=== PATIENT | female | born 1945 | race Caucasian/White ===

== ENCOUNTER 2016-08-08 19:05 | Emergency (ER) | payer MEDICARE ==
[~2016-08-08] VITALS: Ht 170.2 cm; Wt 83.0 kg
[2016-08-08 19:20] VITALS: BP 147/92; PULSE 81; RESP 14; TEMP 98.6; O2SAT 96
[2016-08-08] MEDS ORDERED: LEVO50TA4 PO (19:39)
[2016-08-08] MEDS ORDERED: PRAV40TA2 PO (19:39)
[2016-08-08] MEDS ORDERED: PRAV20TA2 PO (19:39)
--- NOTE | 2016-08-08 21:07 | PD ---
HPI Chief Complaint: Injury Time Seen by Provider: 20:00 Travel History International Travel<30 days: No Contact w/Intl Traveler<30days: No Traveled to known affect area: No History of Present Illness HPI 71-year-old female presents to the emergency room for evaluation of right ankle pain and swelling. Patient tripped on a step and inverted her right ankle approximately 8 hours prior to arrival. She states she was able to lower herself to the ground with the door frame. She denies any other injuries. She denies hitting her head, hip pain, upper extremity pain, neck pain, or back pain. States she had mild pain in her ankle that has been worsening over the day. She has not taken anything for her symptoms but applied topical pain cream. She has been able to ambulate but reports pain with ambulation. Patient became concerned because the swelling worsened throughout the day. She denies paresthesias. PFSH Past Medical History High Cholesterol: Yes Thyroid Disease: Yes Influenza Vaccination: Yes ?: Not Menopausal: Yes Past Surgical History Endocrine Surgery: Yes (parathyroid) Tonsillectomy: Yes Social History Alcohol Use: Yes (occas) Tobacco Use: No Substance Use: No Allergies-Medications (Allergen,Severity, Reaction): Coded Allergies: No Known Allergies (Unverified , 08/08/16) Reported Meds & Prescriptions Reported Meds & Active Scripts Active Reported Levothyroxine (Levothyroxine Sodium) 50 Mcg Tab 50 Mcg PO DAILY Pravastatin 40 Mg Tab 40 Mg PO DAILY Pravastatin 20 Mg Tab 20 Mg PO DAILY Review of Systems Except as stated in HPI: all other systems reviewed are Neg Physical Exam Narrative GENERAL: Well-nourished, well-developed female in no acute distress. Afebrile. SKIN: Focused skin assessment warm/dry. Mild erythema/ecchymosis of the right lateral malleolus. HEAD: Normocephalic. EYES: No scleral icterus. No injection or drainage. NECK: Supple, trachea midline. No JVD or lymphadenopathy. CARDIOVASCULAR: Regular rate and rhythm without murmurs, gallops, or rubs. RESPIRATORY: Breath sounds equal bilaterally. No accessory muscle use. EXTREMITY: Right lateral malleolus mildly tender to palpation. Very slightly limited range of motion vehicle secondary to pain. No pain or range of motion in the foot. 2+ dorsalis pedis pulse. Less than 2 second capillary refill distally. Moderate edema localized over the lateral malleolus. Data Data Last Documented VS Vital Signs Date Time Temp Pulse Resp B/P Pulse Ox O2 Delivery O2 Flow Rate FiO2 08/08/16 19:20 98.6 81 14 147/92 96 Orders Ankle, Complete ([id number]) (08/08/16 ) Acetamin-Hydrocod 325-5 Mg ([place] 5-325 (08/08/16 22:00) Crutches (08/08/16 21:52) Splint Or Brace Apply/Monitor (08/08/16 21:52) MDM Medical Decision Making Medical Screen Exam Complete: Yes Emergency Medical Condition: Yes Medical Record Reviewed: Yes Differential Diagnosis Sprain versus fracture versus abrasion versus contusion Narrative Course 71-year-old female presents to the emergency room for evaluation of right ankle pain and swelling after inverting it this morning. Patient adamantly denies any other injuries and states she was able to lower herself to the ground with the door frame. Physical exam reveals moderate edema and mild tenderness to palpation over the lateral malleolus. Range of motion only slightly limited secondary to pain. 2+ dorsalis pedis pulse. X-ray shows possible avulsion fracture of the lateral malleolus. She was given Lortab for pain. Patient will be treated conservatively with posterior short leg splint. Discharged with crutches and told to follow up with the primary care physician and/or orthopedist or return to the emergency room for worsening symptoms. She understands and agrees to plan. Diagnosis Primary Impression: Closed avulsion fracture of right ankle Qualified Code: S82.891A - Closed avulsion fracture of right ankle, initial encounter Referrals: Primary Care Physician Patient Instructions: Ankle Sprain (ED), General Instructions Additional Instructions: Rest and drink plenty of fluids. Lortab as directed, as needed for pain. Do not drink alcohol or drive while taking this medication. Elevate and compress to reduce swelling. Apply ice to the affected area for 20 minutes at a time, as needed for pain and swelling. Follow-up with a primary care physician and/or orthopedist within 1 week. Return to the emergency room for worsening symptoms. Disposition: 01 DISCHARGE HOME Condition: Stable Arianna Berrios August 08, 2016 21:07
--- NOTE | 2016-08-08 21:49 | RADHPO ---
EXAM DATE/TIME: 08/08/2016 20:17 [facility] COMPARISON: No previous studies available for comparison. INDICATIONS : Fall. Right ankle pain. MEDICAL HISTORY : None. SURGICAL HISTORY : None. ENCOUNTER: Initial ACUITY: 1 day PAIN SCORE: 7/10 LOCATION: Right lateral FINDINGS: There is soft tissue swelling at the ankle especially laterally. There are remote fractures of the di stal tibia and fibula. There may be a small avulsion fracture of the inferior portion of the lateral no dislocation. Osteoarthritis of the ankle joint. CONCLUSION: 1. Probable small avulsion fracture of lateral malleolus with overlying soft tissue swelling. Remote fractures of the distal tibia and fibula. Aubrey Marie MD on August 08, 2016 at 21:44 Board Certified Radiologist. This report was verified electronically.
[2016-08-08] MEDS ORDERED: ACETAMINOPHEN/HYDROcodone 325 MG/5 MG TAB PO ONE (22:00)
[2016-08-08] MEDS ORDERED: HYDR-3533 PO (22:07)
== END 2016-08-08 22:34 | disposition home or self-care (01) ==
LOC: PHEFT 19:05
DX: S82.61XA Displaced fracture of lateral malleolus of right fibula, initial encounter for closed fracture (principal); E78.00 Pure hypercholesterolemia, unspecified; E07.9 Disorder of thyroid, unspecified
CPT/HCPCS: 29515; 73610